=== PATIENT | female | born 1970 | race Caucasian/White ===

== ENCOUNTER 2022-07-18 01:59 | Day surgery (SDC) | payer BC, SELFPAY ==
[2022-07-04 09:27] VITALS: BMI 40.3
[2022-07-18 08:28] VITALS: BP 111/72; PULSE 92; RESP 17; TEMP 36.1; O2SAT 98; BMI 40.0
[2022-07-18] MEDS: LACTATED RINGERS 1,000 ML 150 ML IV CONT (08:40)
[2022-07-18 08:41] LABS: Glucose Point of Care 168 mg/dl (65-105)
--- NOTE | 2022-07-18 09:03 | WPDANESEPPF ---
Anes - Initial Pre Proc Eval Procedure: Operation Date: 07/18/22 10:00 Proposed Procedures p Screening Colonoscopy - Aakash Juan MD Date/Time: 07/18/22 09:03 Surgeon: Aakash Juan MD Pre Op Diagnosis: neoplasm screening Patient Data Age: 52 Gender: F Height: 1.69 m Weight: 114.2 kg Last Vital Signs Temp 97.0 F L 07/18/22 08:28 Pulse 92 07/18/22 08:28 Resp 17 07/18/22 08:28 BP 111/72 07/18/22 08:28 Pulse Ox 98 07/18/22 08:28 O2 Del Method Room Air 07/18/22 08:28 Allergies Allergy/AdvReac Type Severity Reaction Status Date / Time No Known Allergies Allergy Verified 07/18/22 08:26 Home Medications Medication Instructions Recorded Confirmed Type lisinopril 40 mg tablet 40 mg PO DAILY #90 tabs 12/27/21 07/18/22 Rx albuterol sulfate 90 mcg/actuation 1 puff inhalation Q4H PRN SOB 05/04/22 07/18/22 History aerosol inhaler budesonide-formoterol HFA 160 2 puff inhalation Q12H PRN SOB 05/04/22 07/18/22 History mcg-4.5 mcg/actuation aerosol inhaler (Symbicort) cholecalciferol (vitamin D3) 50 50 mcg PO DAILY 05/27/22 07/18/22 History mcg (2,000 unit) tablet cyanocobalamin (vitamin B-12) 2,000 mcg PO DAILY 05/27/22 07/18/22 History 1,000 mcg tablet (Vitamin B-12) dapagliflozin 5 mg tablet (Farxiga) 5 mg PO QAM #90 tabs 06/03/22 07/18/22 Rx metformin 500 mg tablet,extended 1,000 mg PO BID #360 tabs 06/03/22 07/18/22 Rx release 24 hr levothyroxine 125 mcg tablet 125 mcg PO DAILY #90 tabs 06/15/22 07/18/22 Rx atorvastatin 20 mg tablet 20 mg PO DAILY #90 tabs 06/16/22 07/18/22 Rx chlorthalidone 25 mg tablet 25 mg PO DAILY #90 tabs 07/11/22 07/18/22 Rx carvedilol 12.5 mg tablet (Coreg) 12.5 mg PO Q12H #180 tabs 07/15/22 07/18/22 Rx Laboratory Tests 07/18/22 08:35 POC Capillary Glucose 168 mg/dl H mg/dl (65-105) Patient hx anesthesia problems: none Family hx anesthesia problems: none Results Review: All pre-operative results and documents have been reviewed as part of the pre-operative evaluation. [facility] Past Medical History Medical History Gastroesophageal reflux disease without esophagitis Hypothyroidism, unspecified Mixed hyperlipidemia Ophthalmic migraine Prediabetes Seasonal allergic rhinitis due to pollen Family History Family History Father Hypertension Family history of cardiovascular disease Grandparent Family history of cardiovascular disease Other Diabetes mellitus Social History Social History (Updated 05/25/22 @ 10:01 by Suzanne Cueva MA) Smoking status: Never smoker Alcohol intake: current Alcohol use details: rarely - social Substance use: never Substance use type: does not use Lack of Transportation: No Lack of Food: Never True Current Housing: I Have Housing Concerned About Future Housing: No Difficulty Paying Gas/Electric Bills: No Difficulty Paying for Meds: No Currently Unemployed: No Difficulty w/ Childcare or Family Care: No Living arrangements: with family Occupation/Education: occupation Gender identity (if verbalized by the patient): Female Spiritual care concerns: No Anes - Eval Final PreProcedure Day of Procedure 07/18/22 09:03 Patient weight: morbidly obese Heart: regular rate and rhythm Lungs: clear to auscultation Airway: Mallampati scale class III Neurological: alert and oriented Last oral intake: >/= 8 hours ASA classification: III Emergent: no Anesthetic plan: proceed Anesthesia type and monitoring: general GIVS and standard monitoring Results Review: All pre-operative results and documents have been reviewed as part of the pre-operative evaluation. Informed Consent: The patient's anesthetic plan and its attendant risks and benefits were discussed with the patient/family/POA. Questions were solicited and answe
--- NOTE | 2022-07-18 09:05 | PM.HPGS ---
History of Present Illness History of Present Illness Consent: Risks, benefits, and alternatives have been discussed and questions answered. Patient agrees to proceed with procedure. Chief complaint: neoplasm screening Narrative: Loraine Kevin is a 52 year old female with colon polyp 10 years ago Review of Systems Constitutional: Constitutional: Denies headache(s) and Denies weakness Eyes: Eyes: Denies blurry vision ENT: Reports Normal hearing present, Denies headache(s) and Denies neck pain Cardiovascular: Cardiovascular: Denies chest pain and Denies dyspnea Respiratory: Respiratory: Denies dyspnea Gastrointestinal: Gastrointestinal: Reports no additional gastrointestinal complaints Genitourinary: Genitourinary: Denies dysuria Musculoskeletal: Musculoskeletal: Denies neck pain Integumentary/Breasts: Skin/Breast: Denies dry skin Neurologic: Reports Normal hearing present, Denies headache(s) and Denies weakness Psychiatric: Psychiatric: Denies anxiety Endocrine: Endocrine: Denies change in body appearance Hematologic/Lymphatic: Hematologic/Lymphatic: Denies easy bleeding Allergic/Immunologic: Allergic/Immunologic: Denies urticaria PMFSH Past Medical History Medical History (Updated 07/18/22 @ 09:06 by Aakash Juan MD) Colon polyp Gastroesophageal reflux disease without esophagitis Hypothyroidism, unspecified Mixed hyperlipidemia Ophthalmic migraine Prediabetes Seasonal allergic rhinitis due to pollen Family History Family History Father Hypertension Family history of cardiovascular disease Grandparent Family history of cardiovascular disease Other Diabetes mellitus Social History Social History (Updated 05/25/22 @ 10:01 by Suzanne Cueva MA) Smoking status: Never smoker Alcohol intake: current Alcohol use details: rarely - social Substance use: never Substance use type: does not use Lack of Transportation: No Lack of Food: Never True Current Housing: I Have Housing Concerned About Future Housing: No Difficulty Paying Gas/Electric Bills: No Difficulty Paying for Meds: No Currently Unemployed: No Difficulty w/ Childcare or Family Care: No Living arrangements: with family Occupation/Education: occupation Gender identity (if verbalized by the patient): Female Spiritual care concerns: No Meds Home Medications and Allergies Home Medications Medication Instructions Recorded Confirmed Type lisinopril 40 mg tablet 40 mg PO DAILY #90 tabs 12/27/21 07/18/22 Rx albuterol sulfate 90 mcg/actuation 1 puff inhalation Q4H PRN SOB 05/04/22 07/18/22 History aerosol inhaler budesonide-formoterol HFA 160 2 puff inhalation Q12H PRN SOB 05/04/22 07/18/22 History mcg-4.5 mcg/actuation aerosol inhaler (Symbicort) cholecalciferol (vitamin D3) 50 50 mcg PO DAILY 05/27/22 07/18/22 History mcg (2,000 unit) tablet cyanocobalamin (vitamin B-12) 2,000 mcg PO DAILY 05/27/22 07/18/22 History 1,000 mcg tablet (Vitamin B-12) dapagliflozin 5 mg tablet (Farxiga) 5 mg PO QAM #90 tabs 06/03/22 07/18/22 Rx metformin 500 mg tablet,extended 1,000 mg PO BID #360 tabs 06/03/22 07/18/22 Rx release 24 hr levothyroxine 125 mcg tablet 125 mcg PO DAILY #90 tabs 06/15/22 07/18/22 Rx atorvastatin 20 mg tablet 20 mg PO DAILY #90 tabs 06/16/22 07/18/22 Rx chlorthalidone 25 mg tablet 25 mg PO DAILY #90 tabs 07/11/22 07/18/22 Rx carvedilol 12.5 mg tablet (Coreg) 12.5 mg PO Q12H #180 tabs 07/15/22 07/18/22 Rx Allergies Allergy/AdvReac Type Severity Reaction Status Date / Time No Known Allergies Allergy Verified 07/18/22 08:26 Vital Signs Vital Signs - 24 hr 07/18/22 08:28 Temperature 97.0 F L Pulse Rate 92 Respiratory Rate 17 Blood Pressure 111/72 Pulse Oximetry 98 Oxygen Delivery Room Air Exam Const: General: comfortable and no acute distress HENMT: Face/Nose/Sinus: Nor
--- NOTE | 2022-07-18 09:17 | SUR.PREOP ---
Patient stated she has not had a period in over a year, no bedside upreg needed.
[2022-07-18 09:22] VITALS: BP 109/73; PULSE 84; RESP 18; O2SAT 96
--- NOTE | 2022-07-18 09:27 | SUR.OPER ---
4 Transverse Colon Polyps removed. Only [address] Israel cabrera.
[2022-07-18 09:32] VITALS: BP 112/77; PULSE 82; RESP 20; O2SAT 99
[2022-07-18 09:42] VITALS: BP 117/82; PULSE 80; RESP 18; O2SAT 99
== END 2022-07-18 09:53 | disposition home or self-care (01) ==
PROVIDERS: PCP Physician Assistant Medical; Visit Provider Internal Medicine Gastroenterology
PROC: 0DJD8ZZ Inspection of Lower Intestinal Tract, Via Natural or Artificial Opening Endoscopic (ICD-10-PCS; CPT 45378; principal; 2022-07-18 10:00)
DX: Z12.11 Encounter for screening for malignant neoplasm of colon (principal); D12.3 Benign neoplasm of transverse colon; D12.5 Benign neoplasm of sigmoid colon; K64.8 Other hemorrhoids; E78.2 Mixed hyperlipidemia; E03.9 Hypothyroidism, unspecified; K21.9 Gastro-esophageal reflux disease without esophagitis; R73.03 Prediabetes; Z79.51 Long term (current) use of inhaled steroids; Z79.84 Long term (current) use of oral hypoglycemic drugs; E66.01 Morbid (severe) obesity due to excess calories; Z68.41 Body mass index [BMI] 40.0-44.9, adult
CPT/HCPCS: 45385; 45380; 82948; 88305; J2704; J7120

== ENCOUNTER 2023-10-25 13:30 | Outpatient (RCR) | payer BC, SELFPAY ==
--- NOTE | 2023-10-25 16:55 | PTOPEVAL1 ---
Assessment and note entered by Tamra Aguero, PT Evaluation Information Assessment Status Evaluation Diagnosis dizziness and giddiness Therapy conditions BPPV right ear other abnormalities of gait and mobility abnormal postures Onset ~6 months Subjective Information Reports is better than it was. States was mostly with bending down and getting up, or is walking and stopping would get dizzy. Once at work walked to answer a phone and stopped, then lost consciousness for a moment. Reports sometimes has inner pressure in the ears with the sensation, also once was laying in bed and the sensation occurred with ear pressure. Laying on right side sometimes will hear/feel thumping in ear but then goes away. Carotid artery ultrasound last year with normal results. Reports is also overdue for her eyes. States started about 6 months ago got worse and now is getting better. Reports also could have been longer as she remembers falling approx 2-3 years ago when getting out of bed due to dizzienss . Reported Pain Level Pain Score 0: Self Report Assessment PT Clinical Summary Pt presents with complaints of dizziness/wooziness sensation noticed most with stopping after walking . Reports noticed worsening symptoms about 6 months ago but this has improved since. Demo's significnat difference in eyes open and closed stance times with small base of support highly suggestive of inner ear deficit. [place]-Hallpike negative for nystagmus but right side has increased right ear pressure. Pt also demos [place] with right deviation of 40 degrees, and LOB to R with eyes closed activities. Cervicogenic factors cannot be ruled out considering postures, and responses to palpation and cervical testing. Pt will greatly benefit from physical therapy in order to address deficits, improve balance, reduce symptoms, and improve overall quality of life. Plan of Care Interventions Electrical Stimulation,Gait Training,Hot Pack/Cold Pack,Manual Therapy,Mechanical Traction,Neuro Re- education,Therapeutic Activities,Therapeutic Exercise,Self-Care/Home Management,Ultrasound, Other Other Interventions Taping, dry needling PT Services
--- NOTE | 2023-10-25 16:56 | OPREHPOC ---
Outpatient Therapy Plan of Care This is a Multidisciplinary Plan of Care that may contain components documented by all disciplines (PT, OT, and ST.) PT Problem 1 PT Problem #1 Knowledge Deficit PT Goal 1 Goal Pt will be independent in HEP Pt will verbalize understanding of diagnosis and prognosis Target Visit 6 PT Problem 2 PT Problem #2 Impaired Balance PT Goal 1 Goal Pt will demo tandem stance eyes open, firm surface , R/L foot forward x 15 seconds without ENTERTAINMENT REPORTER Target Visit 6 PT Goal 2 Goal Pt will demo feet together, firm surface, eyes closed balance for 30 seconds Target Visit 12 PT Problem 3 PT Problem #3 Impaired Sensation PT Goal 1 Goal Pt will report resolution of symptoms with activities Target Visit 12
--- NOTE | 2023-11-02 08:22 | PCPTNOTE ---
Patient cancelled today's treatment.
--- NOTE | 2023-11-10 08:58 | PCPTNOTE ---
Admitting Provider: Attending Provider: Lorna Rouse PA-C Patient:Loraine Kevin Date of :1970 Patient?s initial visit was on 10/25/2023 13:30 and she had a total of 1 visit. She called today, reported she felt better after Lindy maneuver. Requested to cancel her remaining appointments. The goals have not been met as we were unable to fully retest her balance and abilities. Thank you for referring this patient to [facility]. Please review, sign, date and return this discharge summary ANNELIESE. I have been updated about the patient's current status and I agree with discharge from the above service at this time. Referring Physician Date
== END 2023-11-13 13:43 | disposition home or self-care (01) ==
LOC: ANHHIPT 13:30
PROVIDERS: PCP Physician Assistant Medical; Visit Provider Physician Assistant Medical
DX: H81.11 Benign paroxysmal vertigo, right ear (principal)
CPT/HCPCS: 95992; 97162